=== PATIENT | male | born 1965 | race Caucasian/White ===

== ENCOUNTER 2023-07-11 20:48 | Emergency (ER) | payer BC, SELFPAY ==
[2023-07-11 20:50] VITALS: BP 132/82; BMI 30.8
[2023-07-11 22:00] VITALS: BP 113/91
--- NOTE | 2023-07-11 22:10 | ED.GENMED ---
History of Present Illness
General
Chief Complaint: AICD Problem
Source: patient and family
Exam Limitations: none
Time Seen by Provider: 07/11/23 21:55
Nursing documentation reviewed up to this point in time: agreed with
Travel History
Have you had any contact with someone who has COVID-19?: No
Do you have any symptoms of coronavirus? Fever > 100 degrees, chills, cough, shortness of breath, sore throat, loss of taste or smell, muscle aches, or headache?: No
History of Present Illness
History of Present Illness:
This a pleasant 58-year-old male that presents with AICD firing. Patient was at a when the AICD went off. Patient states that prior to being shocked, he had no cardiac symptoms. He states he was feeling normal. He has a [employer]
AICD. He estimates that it is approximately 12 years old but had the battery replaced recently. Patient has no complaints at this time. Patient follows with Dr. Fransico Rodriguez.
Vital signs are stable. Patient not hypoxic
Nursing note reviewed. I agree with nursing documentation up to this point in time.
Home Meds and allergies reviewed.
NUMBER AND COMPLEXITY OF PROBLEMS ADDRESSED AT THE ENCOUNTER
� Chronic conditions affecting care:
� Acute Exacerbation and/or Progression of Chronic Illness:
� Differential Diagnosis includes:
AMOUNT AND/OR COMPLEXITY OF DATA TO BE REVIEWED AND ANALYZED
I performed an independent evaluation of the following and my interpretation is:
EKG:
CT:
X-rays:
Ultrasound:
Laboratory Studies:
Other:
Review of other/old records: Echocardiogram dated 03/11/2023:
normal left ventricular chamber size with normal left ventricular systolic
function; left ventricular ejection fraction is 65-70% by modified Sandoval's
method. Normal regional wall motion. Severe asymmetric septal hypertrophy with
septal wall measuring 2.0 cm. and the posterior wall is 1.1 cm. Normal
diastolic function. There is an LVOT gradient of 23 mmHg which increases to 44
mmHg with Valsalva maneuver.
There is chordal systolic anterior motion of the anterior mitral valve leaflet
with mild mitral regurgitation.
Since echocardiogram March 2019 at [place], the LVOT gradient is increased
slightly with Valsalva from 18 mmHg to 44 mmHg. The LV septal wall thickness
is increased from 1.4 cm to 2.0 cm.
Clinical information was obtained by an independent historian:
Prescriptions/Medications Considered but not given:
Further testing considered but not performed:
RISK OF COMPLICATIONS AND/OR MORBIDITY OR MORTALITY OF PATIENT MANAGEMENT
Social determinants of health affecting care: Good Social Support
Discussion with other providers:
Escalation of care including admission/observation vs risk of discharge considered:
CRITICAL CARE NOTE:
Total Time (exclusive of procedures):
Update:
Review of Systems
Review of Systems
Other source history: family
All Other Systems: Not applicable
Constitutional: Reports no symptoms
EENT: Reports no symptoms
Respiratory: Reports no symptoms
Cardiac: Reports no symptoms
ABD/GI: Reports no symptoms
: Reports no symptoms
Musculoskeletal: Reports no symptoms
Skin: Reports no symptoms
Neurological: Reports no symptoms
Endocrine: Reports no symptoms
Hematologic/Lymphatic: Reports no symptoms
Psychiatric: Reports no symptoms
Phy Exam
General Physical Exam
General Presentation: well appearing and no apparent distress
General Skin: warm and dry
General Habitus: normal
General Mental: alert
General Hydration: appears well hydrated
ENT Exam
ENT Exam: EOMI, pharynx normal, neck supple and normocephalic
Eye Exam
Eye Exam: PERRL, cornea clear and conjunctiva normal
Cardiovascular Exam
Cardiovascular Exam: regular rate/rhythm, no edema, no murmur and normal peripheral pulses
Pulmonary Exam
Pulmonary Exam: lungs clear, no respiratory distress, no rales, no crackles, no rhonchi, no stridor, no wheezing and no cough
Gastrointestinal Exam
Gastrointestinal Exam: normal bowel sounds, non tender, soft, no organomegaly, no pulsatile mass and non distended
Neurological Exam
Neurological Exam: alert, oriented x3, no motor deficits and speech normal
Musculoskeletal Exam
Musculoskeletal Exam: full ROM and no edema
Skin Exam
Skin Exam: normal color, warm/dry, no rash and no petechia
Psychiatric Exam
Psychiatric Exam: normal mood/affect
Course
Orders/Labs/Results
Orders:
Orders
07/11/23 20:53
EKG [Electrocardiogram (*1)] Urgent
Reason for Study: Other
Other Reason for Exam: AICD fired
EKG- Treatment ONCE
07/11/23 22:22
Complete Blood Count/With Diff Urgent
Comprehensive Metabolic Panel Urgent
PTT Urgent
Prothrombin Time Urgent
Troponin I Urgent
Abnormal Lab Results
07/11/23
22:22
RBC 4.26 L 10^6/uL
(4.70-6.10)
Hct 37.8 L %
(39.0-52.0)
MCH 31.2 H pg
(27.0-31.0)
Absolute Monos (auto) 0.7 H 10^3/uL
(0.1-0.6)
Monocytes % 10.1 H %
(1.7-9.3)
PT 15.0 H Sec
(11.4-14.6)
Chloride 109 H mmol/L
(98-107)
Total Protein 6.1 L g/dl
(6.3-8.2)
07/11/23 22:22
07/11/23 22:22
Vital Signs
Initial and Last Documented VS:
Initial Vital Signs
Temp Pulse Resp BP Pulse Ox
98.4 F 60 16 132/82 99
07/11/23 20:50 07/11/23 20:50 07/11/23 20:50 07/11/23 20:50 07/11/23 20:50
Last Documented Vital Signs
Temp Pulse Resp BP Pulse Ox
98.4 F 60 17 123/83 96
07/11/23 20:50 07/11/23 23:07 07/11/23 23:07 07/11/23 23:07 07/11/23 23:07
*EKG
Interpreted by ED Provider?: Yes
EKG Intrepretation Date: 07/11/23
Rate: normal
Rhythm: ventricular paced and av sequential
Hend[place]: indeterminate
QRS Pattern: wide non-specific
Ischemia: no ischemia
*Critical Care Note
Total Time (30-74mins, 75-104mins- exclusive of procedures): Not Applicable
Update Note
Update Note:
07/11/2023 2324 PM: [employer] report came back. It shows V-fib/V. tach
07/11/2023 2341 PM: Spoke with [employer] junior sales representative that tell me that patient had a V-fib event that had a rate of 242 bpm. Patient had a 23 J shock that arrested the V-fib. This was the one and only shocked the patient had this device.
The device is working okay. Spoke with Dr. Rodriguez, cardiology who recommended patient be observed overnight. Patient absolutely refuses. Patient does not wish to stay in the hospital tonight as he has a in the morning.
ED Attending Note
-
Portions of this chart may have been created with voice recognition software.� Occasional wrong word or��sound alike� substitutions may have occurred due to the inherent limitations of voice recognition software.
Discharge Plan
Departure
Patient Disposition: Home (Routine Discharge)
Date of Disposition: 07/11/23
Time of Disposition: 23:42
Patient with high blood pressure during this ER visit?: Yes
Discharge Problem:
AICD discharge
Instructions: Ventricular fibrillation, BLOOD PRESSURE
Referrals:
Kan Vallecillo MD [Family Provider] -
Fransico Rodriguez MD [Active] - Next open appointment
Activity Restrictions/Additional Instructions:
It was a pleasure meeting you and taking part in your care. We hope for your continued healing and wellness.
Please read discharge instructions in their entirety. However, they are for general education and may not describe your exact diagnosis at discharge. Information on your ER visit and medical conditions were discussed with you along with appropriate
follow up information...
If indicated, please take your medications as instructed and indicated on discharge paperwork.
Please schedule a follow up appointment as directed. Call to schedule an appointment
Please return to the emergency department with ANY change in, persisting, or worsening of symptoms. If any of your symptoms do not improve, or persist, or become more severe within 6-12 hours, please return to the emergency department for further
care.
Please return to the emergency department if you develop a headache, neck pain/stiffness, fever greater than 100.4F, chest pain, shortness of breath, persistent nausea, vomiting, slurred speech, difficulty walking, numbness/tingling, weakness, signs
of infection or any other symptoms that are worrisome to you.
If you have any questions or concerns please do not hesitate to call the Hospital at or E-mail me directly at [email or web address]
Interventions
Interventions:
*Risk Screen - Suicide Last Done: 07/11/23 20:50
*General Assessment Last Done: 07/11/23 22:26
*Neglect/Abuse Screening Last Done: 07/11/23 20:50
ED- Fall Risk Assessment Last Done: 07/11/23 20:50
*Nursing Disposition Last Done: 07/11/23 23:57
ED- Cardiac Assessment Last Done: 07/11/23 22:26
Discharge Date and Time
Discharge Date/Time: 07/11/23 23:58
Print Language: [id number]
[2023-07-11 22:30] LABS: % Basophils 0.7 % (0-2); % Eosinophils 3.3 % (0-6); % Immature Granulocytes 0.3 % (0-0.5); % Lymphocytes 21.4 % (20.5-51.1); % Monocytes 10.1 % (1.7-9.3); % Neutrophils 64.2 % (42.2-75.2); Absolute Basophils 0.1 10^3/uL (0-0.2); Absolute Eosinophils 0.2 10^3/uL (0-0.7); Absolute Lymphocytes 1.5 10^3/uL (1.2-3.4); Absolute Monocytes 0.7 10^3/uL (0.1-0.6); Absolute Neutrophils 4.5 10^3/uL (1.4-6.5); Hematocrit 37.8 % (39.0-52.0); Hemoglobin 13.3 g/dL (13.0-18.0); Mean Corp Hgb Conc. 35.2 g/dL (33.0-37.0); Mean Corpuscular Hgb 31.2 pg (27.0-31.0); Mean Corpuscular Volume 88.7 fL (80.0-94.0); Mean Platelet Volume 9.2 fL (7.4-10.4); Nucleated Red Blood Cells % 0 % (-); Platelet Count 195 10^3/uL (130-400); Red Blood Cell Count 4.26 10^6/uL (4.70-6.10); Red Cell Dist. Width 12.8 % (11.5-14.5)
[2023-07-11 22:39] LABS: INR 1.18
[2023-07-11 22:40] LABS: APTT 34.4 Sec (23.4-35.0)
[2023-07-11 22:43] LABS: ALT (SGPT) 17 U/L (0-50); AST (SGOT) 26 U/L (17-59); Albumin 3.6 g/dl (3.5-5.0); Alkaline Phosphatase 64 U/L (38-126); Blood Urea Nitrogen 15 mg/dl (9-20); Calcium 9.1 mg/dl (8.4-10.2); Carbon Dioxide 22 mmol/L (22-30); Chloride 109 mmol/L (98-107); Estimated Creatinine Clearance 104 ml/min; Glucose 94 mg/dl (70-99); Potassium 3.8 mmol/L (3.5-5.1); Sodium 137 mmol/L (135-145); Total Bilirubin 0.8 mg/dl (0.2-1.3); Total Protein 6.1 g/dl (6.3-8.2); eGFR > 60.00
[2023-07-11 23:07] VITALS: BP 123/83
== END 2023-07-11 23:58 | disposition home or self-care (01) ==
LOC: EMR 20:48
PROVIDERS: EMERGENCY PHYSICIAN Student in an Organized Health Care Education/Training Program; REFERRING PHYSICIAN Internal Medicine Cardiovascular Disease
DX: I49.01 Ventricular fibrillation (principal); I34.0 Nonrheumatic mitral (valve) insufficiency; Z45.02 Encounter for adjustment and management of automatic implantable cardiac defibrillator
CPT/HCPCS: 99284; 80053; 84484; 85025; 85610; 85730; 93005